=== PATIENT | female | born 1990 | race Caucasian/White ===

== ENCOUNTER → 2017-12-14 11:39 | Outpatient (CLI) | payer OTHER, SELFPAY | PROVIDERS: Visit Provider Specialist | DX: Z3A.11 11 weeks gestation of pregnancy (principal) | CPT/HCPCS: 87086 ==

== ENCOUNTER → 2017-12-14 12:47 | Outpatient (CLI) | payer OTHER, SELFPAY ==
[2017-12-14 13:21] LABS: Add Manual Diff / Slide Review NO; Basophils Percent Auto 0.2 % (0-2); Eosinophils Percent Auto 12.9 % (2-4); Hematocrit 39.5 % (36-46); Hemoglobin 13.4 g/dL (12.0-16.0); Lymphocytes Percent Auto 16.9 % (25-40); Mean Corpuscular Hemoglobin 30.9 PG (26-34); Mean Corpuscular Volume 90.8 fL (80-100); Monocytes Percent Auto 7.9 % (3-14); Neutrophils Absolute Auto 7500 /uL (3000-5900); Neutrophils Percent Auto 62.1 % (50-75); Platelet Count 213 X10^3/uL (150-400); Red Blood Cell Count 4.34 X10^6/uL (4.0-5.2); White Blood Cell Count 12.1 X10^3/uL (4.5-11.0)
[2017-12-14 16:35] LABS: Urine N gonorrhoeae NOT DETECTED
[2017-12-14 17:04] LABS: Urine Chlamydia NOT DETECTED
[2017-12-14 20:47] LABS: Hepatitis B Surface Antigen NEGATIVE s/c (NEGATIVE); Rubella Antibody IgG 14.2 IU/mL (>15)
[2017-12-14 20:57] LABS: HIV 1 and 2 Antibody NEGATIVE (NEGATIVE); Hep C Virus Ab w/Reflex Quant NEGATIVE s/c (NEGATIVE)
[2017-12-16 15:09] LABS: HSV 2 IGG AB < 0.90 index (< 0.90); HSV1IGG < 0.90 index (< 0.90)
[2017-12-19 15:23] LABS: Rapid Plasma Reagin NON-REACTIVE
== END ==
PROVIDERS: PCP Specialist; Visit Provider Specialist
DX: Z3A.11 11 weeks gestation of pregnancy (principal)
CPT/HCPCS: 36415; 80055; 86695; 86696; 86703; 86787; 86803; 86850; 86900; 86901; 87086; 87491; 87591

== ENCOUNTER → 2018-01-20 17:02 | Outpatient (CLI) | payer OTHER, SELFPAY ==
[2018-01-20 18:12] LABS: Bilirubin Urine UA NEGATIVE (NEGATIVE); Color Urine UA YELLOW; Glucose Urine UA NEGATIVE (Normal); Ketones Urine UA NEGATIVE (NEGATIVE); Leukocyte Esterase Urine UA 1+ (NEGATIVE); Nitrite Urine UA Negative (Negative); Occult Blood Urine UA NEGATIVE (Negative); Protein Urine UA NEGATIVE (Negative); Urobilinogen Urine UA 0.2 E.U./dL (0.2)
[2018-01-20 18:24] LABS: Appearance Urine UA Slightly Cloudy
[2018-01-20 18:25] LABS: RBC Urine None Seen (0-5/HPF)
[2018-01-20 18:26] LABS: Amorphous Sediment Urine 1+; Bacteria Urine Few (2-10); Calcium Oxalate Crystals Urine Few; Mucus Urine 2+ (Negative); Squamous Epithelial Cell Urine 1-5 /HPF; WBC Urine 1-5/HPF (0-5/HPF)
[2018-01-20 18:27] LABS: Culture Indicated Urine Specimen Cultured
[2018-01-27 08:19] LABS: AFP, Serum 17.6; Calc Gestational Age 16.7
[2018-01-27 08:20] LABS: Estriol, Free 0.72; hCG, MoM 1.41; hCG, Serum 40.3
[2018-01-27 08:21] LABS: Inhibin A, Dimeric 225
[2018-01-27 08:28] LABS: Maternal Weight 162
[2018-01-27 08:29] LABS: Maternal Ethnicity white; Number of Fetuses 1
[2018-01-27 08:30] LABS: Previous Pregnancy Down Syndro NOT GIVEN
[2018-01-27 08:54] LABS: Cigarette Smoker NOT GIVEN; Donated Egg NOT GIVEN; Donor Egg Age NOT GIVEN
== END ==
PROVIDERS: PCP Specialist; Visit Provider Specialist
DX: Z3A.16 16 weeks gestation of pregnancy (principal); Z3A.11 11 weeks gestation of pregnancy
CPT/HCPCS: 36415; 81003; 81015; 82105; 82677; 84702; 86336; 87086

== ENCOUNTER → 2018-04-06 11:31 | Outpatient (CLI) | payer OTHER, SELFPAY ==
[2018-04-06 13:05] LABS: Hematocrit 32.7 % (36-46); Hemoglobin 11.2 g/dL (12.0-16.0)
[2018-04-06 13:22] LABS: GTT (PREG) 1 Hour PP 50gm Dose 100 mg/dL (76-139)
== END ==
PROVIDERS: PCP Specialist; Visit Provider Specialist
DX: Z34.83 Encounter for supervision of other normal pregnancy, third trimester (principal)
CPT/HCPCS: 36415; 82950; 85014; 85018; 86850

== ENCOUNTER → 2018-06-01 18:18 | Outpatient (CLI) | payer OTHER, SELFPAY ==
[2018-06-03 17:59] LABS: Strep Grp B PCR NEG for Grp B Strep
== END ==
PROVIDERS: PCP Specialist; Visit Provider Specialist
DX: Z3A.35 35 weeks gestation of pregnancy (principal)
CPT/HCPCS: 87653

== ENCOUNTER 2018-07-02 18:37 | Inpatient (IN) | payer OTHER, SELFPAY ==
--- NOTE | 2018-07-02 18:45 | PM.OBHP.1 ---
OB HPI Date/Time Date of admission: 07/02/18 Date Patient Seen: 07/02/18 Time Patient Seen: 18:46 History of Present Condition Chief complaint: Obstetrics : 2 Para: 0 Estimated Date of Delivery: 07/02/18 Estimated Gestational Age (weeks): 40 Narrative: Christine Garvin is a 28 year old female admitted for induction for distance from the hospital Indications Indication for induction OB: maternal distance History of Present care: good care, initiated at week # (11), number of visits (10) and pounds weight gain (50) Dating criteria: LMP confirmed by 1st trimester US Ultrasounds: normal mid trimester US Obstetrical complications: none Medical complications: none Preadmission Labs Blood type: AB (+) positive -: Antibody screen: negative, GBS status: negative, HBsAG: negative, HIV: negative, HSV 1: negative, HSV 2: negative and RPR/VDLR: negative -: Chlamydia screen: not detected and Gonorrhea screen: not detected -: Rubella: immune and Varicella: immune HCAB: negative Quad screen: Abnormal Cell-free DNA: Normal female 1 hr GTT: 100 Evaluation Evaluation Baseline heart rate: 150 Variability: Moderate (11-25) monitor accelerations: Present monitor decelerations: Absent Contraction Frequency (minutes): 0 Category of Tracing: I Cervical dilation (cm): 0 Cervical effacement (%): 50 station: -1 Review of Systems Review of Systems Patient denies any signs or symptoms of preeclampsia. She has had no leakage of fluid. Good movement. All systems reviewed & are unremarkable except as noted in HPI and below Exam Vital Signs (past 8 hours): Blood pressure 132/81, pulse of 70, temperature 36.9? Narrative Exam Narrative: HEENT exam within normal limits. Lungs are clear to auscultation percussion. Heart is regular rate and rhythm no S3-S4 or murmurs. Abdomen is gravid. Ultrasound increased amniotic fluid volume with vertex . Extremities with trace edema and nontender. Assessment and Plan (1) 40 weeks gestation of : Current visit: Yes Status: Acute Plan: Plan: Patient is 40 weeks gestation at some distance from the hospital brought in for Cytotec followed by Pitocin induction. Consent form was signed with the patient.
[2018-07-02] MEDS: miSOPROStol 25 MCG TABLET VAG (19:30)
[2018-07-02 21:46] LABS: Add Manual Diff / Slide Review NO; Basophils Absolute Auto 0 /uL (0-100); Basophils Percent Auto 0.3 % (0-2); Eosinophils Absolute Auto 800 /uL (0-450); Hemoglobin 10.9 g/dL (12.0-16.0); Lymphocytes Absolute Auto 1800 /uL (1100-4500); Lymphocytes Percent Auto 17.4 % (25-40); Mean Corpuscular Hemoglobin 28.9 PG (26-34); Mean Corpuscular Volume 87.5 fL (80-100); Monocytes Absolute Auto 1200 /uL (0-900); Monocytes Percent Auto 11.8 % (3-14); Neutrophils Absolute Auto 6400 /uL (1500-7000); Neutrophils Percent Auto 62.5 % (50-75); Platelet Count 252 X10^3/uL (150-400); Red Blood Cell Count 3.77 X10^6/uL (4.0-5.2); Red Cell Distribution Width 13.9 % (11.6-14.8); White Blood Cell Count 10.3 X10^3/uL (4.5-11.0)
[2018-07-02 21:53] VITALS: BP 141/84
--- NOTE | 2018-07-03 07:54 | PM.OBPNLAB ---
Date/Time Date Patient Seen: 07/03/18 Time Patient Seen: 07:54 Pain Control Pain control: tolerating well Pelvic Exam Dilation (cm): 1 Effacement (%): 50 station: -1 Amniotic membrane status: Leaking Contractions Contractions on admission: irregular Monitor mode: External Contraction intensity: Mild Status status: Category l Heart Rate Baseline: 120 Monitor Accelerations: Present Monitor Decelerations: Absent Monitor Variability: Moderate Assessment and Plan Assessment: induction ongoing Plan: begin patient augmentation
[2018-07-03] MEDS: OXYTOCIN PREMIX 30 UNIT/500 ML PLAST..BAG IV (09:40)
[2018-07-03] MEDS: LACTATED RINGERS 1,000 ML 100 ML IV ×2 (09:40→17:47)
[2018-07-03] MEDS: ONDANSETRON 4 MG/2 ML INJ IV (15:35)
[2018-07-03] MEDS: fentaNYL 100 MCG/2 ML INJ IV (17:39)
--- NOTE | 2018-07-03 22:11 | PM.OBPRVD ---
Events: Labor Induction (Prostin followed by Pitocin for distance from the hospital) Delivery date: 07/03/18 Cervical ripening method: per misoprostal protocol Induction method: per pitocin protocol Delivery monitor: external FHT and external uterine Route of delivery: L&D Laceration Description: Perineal - 2nd Degree Delivery repair: vicryl (Two 0) and chromic (Three 0) Estimated blood loss (mL): 250 Anesthesia type: Local (10 cc of 1% lidocaine) Narrative: Patient arrived on Labor and delivery for induction by prostaglandins for distance from the hospital. She was started on Pitocin. She progressed normally. heart tones remained category 1 to category 2 throughout labor. She did receive 1 dose of fentanyl for pain. She delivered spontaneously over an intact perineum a viable female infant. The infant was placed on maternal abdomen. After cord stopped pulsating the cord was clamped cut and cord bloods obtained. The placenta delivered spontaneously, intact, with 3 vessels. There were no cervical tears. Second-degree perineal vaginal tear was repaired in 2 layers. Two [id number] deep sutures of 2 0 Vicryl. Otherwise normal 2 layer repair with 3 0 chromic. The estimated blood loss was 250 cc. Both and mother did well. Baby weighed 8 lb 14 oz 4050 g Baby 1: Infant gender: Female Presentation: vertex position: Right Occiput Anterior Placenta delivery description: Spontaneous cord vessel description: 3 Vessels score (1 min): 8 score (5 min): 9 Plan for aftercare: Routine care
[2018-07-03] MEDS: DERMOPLAST SPRAY 20% 60 ML 1 SPRAY TOP (23:25)
[2018-07-04 01:15] VITALS: TEMP 36.9
[2018-07-04] MEDS: ACETAMINOPHEN 325 MG TABLET 650 MG PO (01:15)
[2018-07-04 07:09] LABS: Add Manual Diff / Slide Review NO; Basophils Absolute Auto 0 /uL (0-100); Basophils Percent Auto 0.2 % (0-2); Eosinophils Absolute Auto 100 /uL (0-450); Eosinophils Percent Auto 0.6 % (2-4); Hematocrit 28.8 % (36-46); Hemoglobin 9.4 g/dL (12.0-16.0); Lymphocytes Absolute Auto 1500 /uL (1100-4500); Mean Corpuscular HGB Conc 32.7 % (30-36); Mean Corpuscular Hemoglobin 28.5 PG (26-34); Mean Corpuscular Volume 87.1 fL (80-100); Monocytes Absolute Auto 1800 /uL (0-900); Monocytes Percent Auto 10.5 % (3-14); Neutrophils Absolute Auto 13600 /uL (1500-7000); Neutrophils Percent Auto 79.7 % (50-75); Platelet Count 214 X10^3/uL (150-400); Red Blood Cell Count 3.31 X10^6/uL (4.0-5.2); Red Cell Distribution Width 14.1 % (11.6-14.8); White Blood Cell Count 17.1 X10^3/uL (4.5-11.0)
--- NOTE | 2018-07-04 09:42 | P.PNOB_ITS ---
Subjective - OB Interval history: day 1. Patient comments: incisional pain [place] baby status: doing well [place] feeding status: exclusively breast feeding Narrative: Patient denies any signs or symptoms of preeclampsia. She is breast- feeding without difficulty. She is urinating and ambulating well. She has moderate incisional pain. Date Patient Seen: 07/04/18 Time Patient Seen: 09:40 Exam Vital Signs (past 8 hours): Blood pressure 131/82, pulse of 80, temperature 98? Narrative Exam Narrative: Abdomen is soft, nontender. Uterus is firm, at U, nontender. Repair is intact. Mild lochia. Extremities with trace edema and nontender. Objective Labs Result Diagrams: 07/04/18 06:47 Labs: Laboratory Results - last 24 hr 07/04/18 06:47 WBC 17.1 H D RBC 3.31 L Hgb 9.4 L Hct 28.8 L MCV 87.1 MCH 28.5 MCHC 32.7 RDW 14.1 Plt Count 214 Neut % (Auto) 79.7 H Lymph % (Auto) 9.0 L [place] % (Auto) 10.5 Eos % (Auto) 0.6 L Baso % (Auto) 0.2 Neut # (Auto) 50600 H Lymph # (Auto) 1500 [place] # (Auto) 1800 H Eos # (Auto) 100 Baso # (Auto) 0 Assessment & Plan (1) 40 weeks gestation of : Status: Acute Current Visit: Yes (2) Vaginal delivery: Status: Acute Current Visit: Yes Time Spent With Patient Total time spent is greater than 50% in coordination of care (as documented) at patient's floor/unit and/or counseling patient: less than 15 minutes
[2018-07-04] MEDS: FERROUS GLUCONATE 324 MG TABLET PO (18:51)
[2018-07-04] MEDS: IBUPROFEN 600 MG TABLET PO (18:51)
--- NOTE | 2018-07-05 | DI.US.S_ITS ---
PROCEDURE: US PERIPH VENOUS LOW EXTREM BI INDICATIONS: Rule out pelvic thrombosis TECHNIQUE: Real-time imaging, as well as color and pulse Doppler interrogation, were performed of the deep veins of both legs from the inguinal ligament to the popliteal fossa. COMPARISON: None. FINDINGS: The deep veins are normally compressible, and free of intraluminal thrombus. This includes up to level of the common femoral and iliac veins bilaterally and distal IVC. Color and pulse Doppler demonstrate normal phasic intravascular flow. There is normal augmentation response to distal compression maneuver. IMPRESSION: Sonographically, no evidence of deep venous thrombosis within the pelvis and lower extremities. Dictated by: Angus Lopez M.D. on 07/05/2018 at 14:24 Approved by: Angus Lopez M.D. on 07/05/2018 at 14:27
--- NOTE | 2018-07-05 | DI.CT.S_ITS ---
PROCEDURE: CT ANGIO ABDOMEN PELVIS INDICATIONS: Rule out pelvic thrombosis fever TECHNIQUE: After the administration of intravenous contrast, 2.5 mm thick sections acquired from the diaphragm to the symphysis. 10 mm maximum-intensity projection (MIP) reformats were then acquired. For radiation dose reduction, the following was used: automated exposure control. COMPARISON: None. FINDINGS: Image quality: Excellent. PELVIC veins: Pelvic veins appear patent. No abnormal venous enlargement. No intraluminal filling defect to suggest intraluminal thrombosis. The IVC also appears grossly unremarkable Aorta: Normal Mesenteric arteries: Celiac trunk, superior and inferior mesenteric arteries appear patent. Right pelvic arteries: Normal Left pelvic arteries: Normal Extravascular soft tissues: appearance of the uterus which is enlarged and heterogeneous. There is circumferential questionable bladder wall thickening although this could be due to partially collapsed state. IMPRESSION: No intraluminal filling defects to suggest pelvic venous thrombosis. Dictated by: Angus Lopez M.D. on 07/05/2018 at 15:26 Approved by: Angus Lopez M.D. on 07/05/2018 at 15:31
[2018-07-05] MEDS: ACETAMINOPHEN 325 MG TABLET 650 MG PO ×4 (02:18→21:39)
[2018-07-05 03:14] VITALS: TEMP 39.1
[2018-07-05] MEDS: IBUPROFEN 600 MG TABLET PO ×4 (03:14→21:39)
[2018-07-05] MEDS: LACTATED RINGERS 1,000 ML 100 ML IV ×2 (03:36→15:31)
[2018-07-05] MEDS: CEFAZOLIN 2 GM/100 ML FROZ.PIGGY IV ×2 (03:54→11:31)
--- NOTE | 2018-07-05 07:57 | PM.OBPN.1 ---
Subjective - OB Interval history: vaginal delivery Patient comments: other (Patient febrile) baby status: doing well and nursing well feeding status: exclusively breast feeding Narrative: Patient denies any upper respiratory infection symptoms. No sore throat. No cough. No congestion. Patient denies any UTI symptoms. She had no symptoms other than feeling cold. She denies any abdominal pain. No pain in her repair of her tear. She has minimal bleeding. She is ambulating well. Date Patient Seen: 07/05/18 Time Patient Seen: 07:59 Exam Vital Signs (past 8 hours): -T-max 103.3? current temperature 99.2? blood pressure 138/78, pulse of 82 07/05/18 03:14 Temperature 102.3 F H Narrative Exam Narrative: HEENT exam within normal limits. Lungs are clear to auscultation percussion. Heart is regular rate and rhythm no S3-S4 or murmurs. Abdomen is soft, nontender. Uterus is firm, at U nontender. Mild lochia with no odor. Repair is intact. Extremities without edema and nontender. Objective Labs Result Diagrams: 07/04/18 06:47 Assessment & Plan (1) 40 weeks gestation of : Status: Acute Current Visit: Yes (2) Vaginal delivery: Status: Acute Current Visit: Yes (3) fever, current hospitalization: Problem details: Patient with fever on of unclear etiology. Patient started on cephalosporin. Her allergy to penicillin was a rash as a teenager. Will monitor for further symptoms to direct treatment. Status: Acute Current Visit: Yes Time Spent With Patient Total time spent is greater than 50% in coordination of care (as documented) at patient's floor/unit and/or counseling patient: less than 15 minutes
[2018-07-05 08:48] VITALS: TEMP 39
[2018-07-05] MEDS: DOCUSATE 250 MG CAPSULE PO (08:49)
[2018-07-05] MEDS: FERROUS GLUCONATE 324 MG TABLET PO (08:50)
[2018-07-05 10:12] VITALS: TEMP 39.5
[2018-07-05 14:56] VITALS: TEMP 38.1
[2018-07-05 15:39] LABS: Add Manual Diff / Slide Review NO; Basophils Absolute Auto 0 /uL (0-100); Basophils Percent Auto 0.2 % (0-2); Eosinophils Absolute Auto 100 /uL (0-450); Eosinophils Percent Auto 0.8 % (2-4); Hematocrit 28.5 % (36-46); Hemoglobin 9.4 g/dL (12.0-16.0); Lymphocytes Absolute Auto 800 /uL (1100-4500); Lymphocytes Percent Auto 6.2 % (25-40); Mean Corpuscular HGB Conc 32.9 % (30-36); Mean Corpuscular Hemoglobin 28.7 PG (26-34); Mean Corpuscular Volume 87.5 fL (80-100); Monocytes Absolute Auto 800 /uL (0-900); Monocytes Percent Auto 6.2 % (3-14); Neutrophils Absolute Auto 10800 /uL (1500-7000); Neutrophils Percent Auto 86.6 % (50-75); Platelet Count 162 X10^3/uL (150-400); Red Blood Cell Count 3.26 X10^6/uL (4.0-5.2); Red Cell Distribution Width 14.1 % (11.6-14.8); White Blood Cell Count 12.4 X10^3/uL (4.5-11.0)
[2018-07-05 15:46] LABS: INR 0.9 (0.9-1.3); Prothrombin Time 10.8 SECONDS (10.1-12.7)
[2018-07-05 15:48] LABS: PTT Partial Thromboplastin Tim 26 SECONDS (26.4-36.2)
[2018-07-05 16:27] VITALS: TEMP 39.3
[2018-07-05] MEDS: CLINDAMYCIN 600 MG/50 ML PIGGYBACK 50 MG IV (17:00)
[2018-07-05 17:33] LABS: Estimated Glomerular Filt Rate > 60.0 mL/min (>60)
[2018-07-05] MEDS: GENTAMICIN 350 MG in SODIUM CHLORIDE 0.9% 100 ML 108.75 ML IV (18:17)
--- NOTE | 2018-07-05 19:24 | PM.OBPN.1 ---
Subjective - OB Interval history: vaginal delivery with continued spiking temperatures Patient comments: pain well controlled, tolerating diet and flatus present baby status: doing well feeding status: exclusively breast feeding Narrative: Patient continues to deny any upper respiratory infection symptoms. No cough. No sore throat. Her is going well. She is passing gas. She is urinating well. She is ambulatory. The only pain is when she changes position she has some pain in her second-degree tear repair site. Date Patient Seen: 07/05/18 Time Patient Seen: 16:00 Exam Vital Signs (past 8 hours): - 07/05/18 14:56 07/05/18 16:27 Temperature 100.5 F H 102.8 F H Narrative Exam Narrative: Patient's HEENT exam within normal limits. Lungs are clear to auscultation and percussion. Heart is regular rate and rhythm no S3-S4 or murmurs. Abdomen is soft, nontender. Uterus is firm, at U, nontender. Repair is intact without evidence of infection. Extremities with trace edema and nontender. Objective Imaging CT scan - abdomen: Radiologist's impression: No evidence of pelvic thrombophlebitis. No cause for fever seen. Labs Result Diagrams: 07/05/18 15:20 07/05/18 17:15 Labs: Laboratory Results - last 24 hr 07/05/18 07/05/18 07/05/18 15:20 15:20 17:15 WBC 12.4 H RBC 3.26 L Hgb 9.4 L Hct 28.5 L MCV 87.5 MCH 28.7 MCHC 32.9 RDW 14.1 Plt Count 162 Neut % (Auto) 86.6 H Lymph % (Auto) 6.2 L [place] % (Auto) 6.2 Eos % (Auto) 0.8 L Baso % (Auto) 0.2 Neut # (Auto) 89200 H Lymph # (Auto) 800 L [place] # (Auto) 800 Eos # (Auto) 100 Baso # (Auto) 0 PT 10.8 INR 0.9 APTT 26 L Creatinine 0.90 Estimated GFR > 60.0 Assessment & Plan (1) 40 weeks gestation of : Status: Acute Current Visit: Yes (2) Vaginal delivery: Status: Acute Current Visit: Yes (3) fever, current hospitalization: Problem details: Patient with fever on of unclear etiology. Cath urine specimen negative. CT scan negative. Blood cultures and vaginal cultures pending. Will switch to gentamicin and clindamycin presumption at this time is endometritis. Status: Acute Current Visit: Yes Time Spent With Patient Total time spent is greater than 50% in coordination of care (as documented) at patient's floor/unit and/or counseling patient: 15-24 minutes
[2018-07-06] MEDS: CLINDAMYCIN 600 MG/50 ML PIGGYBACK 50 MG IV ×3 (01:06→17:00)
[2018-07-06 04:18] VITALS: TEMP 37.8
[2018-07-06] MEDS: IBUPROFEN 600 MG TABLET PO ×2 (04:18→15:03)
[2018-07-06 04:19] VITALS: TEMP 37.8
[2018-07-06] MEDS: ACETAMINOPHEN 325 MG TABLET 650 MG PO ×4 (04:19→19:20)
[2018-07-06] MEDS: DOCUSATE 250 MG CAPSULE PO (09:08)
[2018-07-06] MEDS: FERROUS GLUCONATE 324 MG TABLET PO (09:09)
[2018-07-06] MEDS: GENTAMICIN 280 MG in SODIUM CHLORIDE 0.9% 100 ML 107 ML IV (18:01)
--- NOTE | 2018-07-06 18:25 | P.PNOB_ITS ---
Subjective - OB Interval history: vaginal delivery with continued spiking temperatures Patient comments: no complaints [place] baby status: doing well [place] feeding status: exclusively breast feeding Narrative: Patient was feeling much better today although she did have another temperature spike this afternoon which resolved quickly. Patient denies any headaches, sore throat, chest pains or shortness of breath. Patient is urinating and ambulating well. She denies any pain. Bleeding is mild. Date Patient Seen: 07/06/18 Time Patient Seen: 18:22 Exam Vital Signs (past 8 hours): Temperature 101.2?, Narrative Exam Narrative: Patient's lungs are clear to auscultation percussion. Abdomen is soft, nontender. Uterus is firm, U -1, nontender. Mild lochia. Vaginal and rectal exam did not reveal any masses or unusual tenderness. Her perineal tear repair is intact. No evidence of infection. Extremities without edema and nontender. Objective Labs Result Diagrams: 07/05/18 15:20 07/05/18 17:15 Assessment & Plan (1) 40 weeks gestation of : Status: Acute Current Visit: Yes (2) Vaginal delivery: Status: Acute Current Visit: Yes (3) fever, current hospitalization: Problem details: Urine culture now is showing gram-negative bacillus. Awaiting sensitivity. Will monitor for improvement of temperatures. Home after 24 hr afebrile. Status: Acute Current Visit: Yes Time Spent With Patient Total time spent is greater than 50% in coordination of care (as documented) at patient's floor/unit and/or counseling patient: less than 15 minutes
[2018-07-06 19:20] VITALS: TEMP 37.7
[2018-07-07] MEDS: ACETAMINOPHEN 325 MG TABLET 650 MG PO ×2 (00:23→07:31)
[2018-07-07] MEDS: IBUPROFEN 600 MG TABLET PO ×2 (00:24→07:32)
[2018-07-07] MEDS: CLINDAMYCIN 600 MG/50 ML PIGGYBACK 50 MG IV ×2 (00:50→09:11)
[2018-07-07 07:13] LABS: Add Manual Diff / Slide Review NO; Basophils Absolute Auto 0 /uL (0-100); Basophils Percent Auto 0.2 % (0-2); Eosinophils Absolute Auto 600 /uL (0-450); Eosinophils Percent Auto 5.7 % (2-4); Hematocrit 26.7 % (36-46); Hemoglobin 8.8 g/dL (12.0-16.0); Lymphocytes Absolute Auto 1000 /uL (1100-4500); Mean Corpuscular HGB Conc 32.8 % (30-36); Mean Corpuscular Hemoglobin 28.5 PG (26-34); Mean Corpuscular Volume 86.7 fL (80-100); Monocytes Absolute Auto 1200 /uL (0-900); Monocytes Percent Auto 10.4 % (3-14); Neutrophils Absolute Auto 8400 /uL (1500-7000); Neutrophils Percent Auto 74.7 % (50-75); Platelet Count 173 X10^3/uL (150-400); Red Blood Cell Count 3.08 X10^6/uL (4.0-5.2); Red Cell Distribution Width 14.1 % (11.6-14.8); White Blood Cell Count 11.2 X10^3/uL (4.5-11.0)
[2018-07-07 07:31] VITALS: TEMP 37.7
[2018-07-07 07:32] VITALS: TEMP 37.7
[2018-07-07] MEDS: LACTATED RINGERS 1,000 ML 100 ML IV (09:11)
[2018-07-07] MEDS: FERROUS GLUCONATE 324 MG TABLET PO (09:11)
[2018-07-07] MEDS: DOCUSATE 250 MG CAPSULE PO (09:12)
[2018-07-07 13:53] VITALS: BP 143/91; PULSE 79
[2018-07-07] MEDS: LABETALOL 100 MG TABLET PO ×2 (13:53→16:04)
[2018-07-07] MEDS: TRIMETH/SULFA 160/800 (DS) TABLET 1 TAB PO (13:54)
--- NOTE | 2018-07-07 15:11 | PM.OBDS.1 ---
Discharge Providers Date of admission: 07/02/18 18:37 Primary care physician: Yuliana Kay MD Consults: 07/03/18 22:28 Consult to Retirement Benefits Specialist Routine Comment: Discharge provider: Yuliana Kay MD Discharge Date: 07/07/18 Summary Date Patient Seen: 07/07/18 Time Patient Seen: 15:15 Hospital Course: Patient arrived on Labor and delivery for induction is for distance from the hospital. She received Cytotec and Pitocin to induce labor. She had a spontaneous vaginal delivery with a second-degree tear repaired. She developed a fever . Workup finally pinpointed urinary tract infection for which she was treated with antibiotics. She did get a CT scan and ultrasound during the workup. She received IV antibiotics. The final day prior to discharge the patient developed hypertension she was started on labetalol. She denies any signs or symptoms of preeclampsia. She has minimal pain. Patient has now been afebrile for close to 24 hr. Current blood pressure 142/91. Patient was started on labetalol. Patient's abdomen is soft, nontender. Uterus is firm, at U, nontender. Repair is intact. Extremities with out edema and nontender. DTRs are normal. Patient's blood type is AB positive she was rubella equivocal. Peripartum Data Delivery Method: Natural Vaginal Discharge Diagnosis (1) 40 weeks gestation of : Status: Acute (2) Vaginal delivery: Status: Acute (3) fever, current hospitalization: Status: Acute Problem Details: Urine culture now is showing gram-negative bacillus. Awaiting sensitivity. Will monitor for improvement of temperatures. Home after 24 hr afebrile. (4) Urinary tract infection: Status: Acute (5) Anemia: Status: Acute (6) Hypertension, condition or complication: Status: Acute Time Spent with Patient Total time spent providing and/or coordinating discharge services: Objective Labs Result Diagrams: 07/07/18 06:45 07/05/18 17:15 Labs: Laboratory Results - last 24 hr 07/07/18 06:45 WBC 11.2 H RBC 3.08 L Hgb 8.8 L Hct 26.7 L MCV 86.7 MCH 28.5 MCHC 32.8 RDW 14.1 Plt Count 173 Neut % (Auto) 74.7 Lymph % (Auto) 9.0 L [place] % (Auto) 10.4 Eos % (Auto) 5.7 H Baso % (Auto) 0.2 Neut # (Auto) 8400 H Lymph # (Auto) 1000 L [place] # (Auto) 1200 H Eos # (Auto) 600 H Baso # (Auto) 0 Discharge Plan Discharge Plan Patient Disposition: Home Discharge Med Rec/Prescriptions Prescriptions: New ibuprofen 600 mg Tablet 600 mg PO Q6HR PRN (Reason: As Needed For Fever/Mild Pain) Qty: 30 RF: 0 docusate sodium 250 mg Capsule 250 mg PO DAILY Qty: 20 RF: 0 ferrous gluconate 324 mg (38 mg iron) Tablet 324 mg PO DAILY Qty: 30 RF: 1 Continue Vitamin tablet 1 RF: 0 No Action labetalol 100 mg tablet 100 mg PO BID Qty: 30 RF: 0 sulfamethoxazole-trimethoprim 800-160 mg tablet 1 tab PO BID Qty: 14 RF: 0 Follow up/Referrals: Yuliana Kay MD [Primary Care Provider] - 08/03/18 11:45 am (Tuesday) Provider Discharge Instructions Diet: Regular Activity: Nothing in vagina for 4 weeks. Other treatments: Patient is to monitor blood pressure at least every other day Skin/Wound/Dressing Care Report to your healthcare provider any signs of infection, such as:: chills, fever and increased pain Discharge Data Primary Care Provider: Yuliana Kay Attending Provider: Yuliana Kay Admit Date/Time: 07/02/18 18:37
[2018-07-07 15:35] VITALS: BP 143/91; PULSE 79; RESP 16; TEMP 37.7
[2018-07-07 15:42] VITALS: BP 143/91; PULSE 79; RESP 16; TEMP 37.7
[2018-07-07 16:04] VITALS: BP 144/91; PULSE 81
[2018-07-07] MEDS: MEASLES,MUMPS,RUBELLA VACC/PF 0.5 ML VIAL SUBCUT (16:08)
== END 2018-07-07 17:10 | disposition home or self-care (01) | DRG 806 ==
PROVIDERS: Admitting Provider Specialist; PCP Specialist; Visit Provider Specialist
DX: O70.1 Second degree perineal laceration during delivery (principal); O86.4 Pyrexia of unknown origin following delivery; Z37.0 Single live birth; O86.20 Urinary tract infection following delivery, unspecified; Z3A.40 40 weeks gestation of pregnancy; B96.89 Other specified bacterial agents as the cause of diseases classified elsewhere; O16.5 Unspecified maternal hypertension, complicating the puerperium
CPT/HCPCS: 36415; 59050; 59200; 59400; 74174; 76815; 82565; 85025; 85610; 85730; 86850; 86900; 86901; 87040; 87070; 87077; 87086; 87186; 87205; 93970; G0379; J0690; J2405; J2590; J3010; Q9967